=== PATIENT | female | born 1995 | race Caucasian/White ===

== ENCOUNTER 2024-05-20 18:57 | Emergency (ER) | payer OTHER, SELFPAY ==
[2024-05-20 19:01] VITALS: BP 114/82
[2024-05-20 22:26] VITALS: BP 119/86
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
== END 2024-05-20 22:54 | disposition home or self-care (01) ==
LOC: EMR 18:57
PROVIDERS: EMERGENCY PHYSICIAN Emergency Medicine
DX: S13.4XXA Sprain of ligaments of cervical spine, initial encounter (principal); V49.40XA Driver injured in collision with unspecified motor vehicles in traffic accident, initial encounter; F17.290 Nicotine dependence, other tobacco product, uncomplicated
CPT/HCPCS: 99283; 72050

== ENCOUNTER 2024-10-01 07:43 | Emergency (ER) | payer OTHER, SELFPAY ==
[2024-10-01 07:54] VITALS: BP 100/75
--- NOTE | 2024-10-01 08:42 | ED.GENMED ---
History of Present Illness
General
Chief Complaint: Abdominal Pain
Source: patient and spouse
Exam Limitations: none
Time Seen by Provider: 10/01/24 08:07
Nursing documentation reviewed up to this point in time: agreed with
History of Present Illness
History of Present Illness:
28-year-old female presenting to the emergency department today with concerns of abdominal discomfort described as stabbing starting last night rating to the right lower quadrant left lower quadrant. Associated nausea no vomiting no diarrhea
currently her menstrual cycle denies any significant changes or symptoms different from the norm.
Past History
Past History
ED Past Medical History: None
ED Past Surgical History: Tonsilectomy
Social History
Tobacco: Other (Vapes)
Alcohol: None
Drug: None
Personal: Single
Living: with roommate (boyfriend)
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
Review of Systems
Review of Systems
Allergies reviewed?: Yes
All Other Systems: ROS reviewed and negative except as documented in HPI and ROS
Phy Exam
Physical Exam
Physical Exam:
GENERAL: Alert , in no apparent distress
EYE: pupils equal and reactive
NECK: Supple, no significant adenopathy.
ENT: o/p clr, mmm.
CARDIAC: Regular rate and rhythm .
LUNGS: Clear breath sounds bilaterally, no acute respiratory distress, no wheezes/rales/rhonchi
ABDOMEN: Tenderness palpation throughout the lower abdomen maximal to the suprapubic region right lower quadrant. No specific peritoneal signs no discomfort to the upper abdomen. Voluntary guarding throughout the lower abdomen
NEUROLOGICAL: Alert and oriented, no focal neuro deficits
SKIN: Warm and dry, skin intact.
MUSCULOSKELETAL: No edema, well perfused.
PSYCH: Normal and appropriate interaction.
Course
Orders/Labs/Results
Orders:
Orders
10/01/24 08:25
CT Abd/Pel (IV only)-DH only Urgent
Comment:
Reason For Exam: lower abd pain
Ketorolac [Toradol] 15 mg IV NOW STA
Test Result ONCE
10/01/24 08:52
Complete Blood Count/With Diff Urgent
Comprehensive Metabolic Panel Urgent
HCG, Serum Qualitative Screen Urgent
Lipase Urgent
Urinalysis Reflex To Culture Urgent
Date Specimen was Collected: 10/01/24
Time Specimen was Collected: 08:50
Abnormal Lab Results
10/01/24
08:52
WBC 3.9 L 10^3/uL
(4.8-10.8)
RBC 3.79 L 10^6/uL
(4.20-5.40)
Hgb 11.7 L g/dL
(12.0-16.0)
Hct 34.2 L %
(37.0-47.0)
Absolute Lymphs (auto) 0.8 L 10^3/uL
(1.2-3.4)
10/01/24 08:52
10/01/24 08:52
Vital Signs
Initial and Last Documented VS:
Initial Vital Signs
Temp Pulse Resp BP Pulse Ox
98.4 F 67 18 100/75 100
10/01/24 07:54 10/01/24 07:54 10/01/24 07:54 10/01/24 07:54 10/01/24 07:54
Last Documented Vital Signs
Temp Pulse Resp BP Pulse Ox
98.4 F 67 18 100/75 100
10/01/24 07:54 10/01/24 07:54 10/01/24 07:54 10/01/24 07:54 10/01/24 07:54
MDM/Problems Addressed
MDM/Problems Addressed:
28-year-old female presenting to the emergency department with concerns of lower abdominal pain. Reproducible here to the suprapubic and right lower quadrant. Starting last night worsening today. Associated nausea no vomiting. Plan for CT scan
for further assessment. CT scan does not show any emergent findings. Patient claims after Toradol symptoms have fully resolved patient no distress no ongoing discomfort to palpation to the abdomen. Surgical pathology appears very unlikely at this
point. The possibility of missing an ovarian torsion was discussed with the patient however no evidence on CT scan making this unlikely also with resolution. She was advised for any recurrence of symptoms to return for further assessment. She
demonstrated understanding and agreement with the plan.
*Critical Care Note
Total Time (30-74mins, 75-104mins- exclusive of procedures): Not Applicable
ED Attending Note
-
Portions of this chart may have been created with voice recognition software.� Occasional wrong word or��sound alike� substitutions may have occurred due to the inherent limitations of voice recognition software.
Discharge Plan
Departure
Patient Disposition: Home (Routine Discharge)
Date of Disposition: 10/01/24
Time of Disposition: 10:33
Patient with high blood pressure during this ER visit?: No
Condition: Good
Covid-19: Not Applicable
Discharge Problem:
Lower abdominal pain
Instructions: Abdominal Pain
Prescriptions:
No Action
folic acid 0.4 MG tablet
0.4 mg PO DAILY
prenat.vits,julio,iqa-wrmz-iovuv [ Vitamin] 1 EACH tablet
1 tab PO DAILY
ibuprofen 600 MG tablet
600 mg PO Q4HPRN PRN (Reason: moderate pain/cramps) Qty: 0 0RF
ondansetron 4 mg tablet,disintegrating
4 mg PO Q8H PRN (Reason: nausea and vomiting) Qty: 10 0RF
Referrals:
Bethany Bernstein NP [Family Provider] -
Activity Restrictions/Additional Instructions:
You came to the emergency department today with concerns of lower abdominal pain. Here you had a reassuring assess with normal CT scan and labs. Please follow-up closely as an outpatient. Please return for any worsening or progressive symptoms
Interventions
Interventions:
*Risk Screen - Suicide Last Done: 10/01/24 07:54
*General Assessment Last Done: 10/01/24 07:54
*Neglect/Abuse Screening Last Done: 10/01/24 07:54
ED- Fall Risk Assessment Last Done: 10/01/24 11:00
*ED COVID-19 Vaccine History Last Done: 10/01/24 11:00
*Nursing Disposition Last Done: 10/01/24 11:00
GX-Hempkp-Wacsiqfqlx Assessment Last Done: 10/01/24 11:00
Discharge Date and Time
Discharge Date/Time: 10/01/24 11:01
Print Language: TELUGU
[2024-10-01 08:56] VITALS: BMI 23.9
[2024-10-01 09:07] LABS: Urine Albumin Negative (Neg - Trace); Urine Bilirubin Negative (Negative); Urine Character Clear (Clear); Urine Color Straw; Urine Glucose Negative (Negative); Urine Ketone Negative (Negative); Urine Leukocyte Negative (Negative); Urine Nitrite Negative (Negative); Urine Occult Blood Negative (Negative); Urine Specific Gravity 1.015 (<1.030); Urine Urobilinogen Negative (Neg - 1+)
[2024-10-01 09:09] LABS: % Basophils 0.8 % (0-2); % Eosinophils 2.6 % (0-6); % Immature Granulocytes 0.5 % (0-0.5); % Lymphocytes 20.6 % (20.5-51.1); % Neutrophils 67.5 % (42.2-75.2); Absolute Eosinophils 0.1 10^3/uL (0-0.7); Absolute Lymphocytes 0.8 10^3/uL (1.2-3.4); Absolute Monocytes 0.3 10^3/uL (0.1-0.6); Absolute Neutrophils 2.6 10^3/uL (1.4-6.5); Hematocrit 34.2 % (37.0-47.0); Hemoglobin 11.7 g/dL (12.0-16.0); Mean Corp Hgb Conc. 34.2 g/dL (33.0-37.0); Mean Corpuscular Hgb 30.9 pg (27.0-31.0); Mean Corpuscular Volume 90.2 fL (81.0-99.0); Mean Platelet Volume 10.1 fL (7.4-10.4); Nucleated Red Blood Cells % 0 %; Platelet Count 191 10^3/uL (130-400); Red Blood Cell Count 3.79 10^6/uL (4.20-5.40); Red Cell Dist. Width 12.7 % (11.5-14.5); White Blood Cell Count 3.9 10^3/uL (4.8-10.8)
[2024-10-01] MEDS: TORADOL 15 MG IV (09:11)
[2024-10-01 09:19] LABS: HCG, Serum Qualitative Screen Negative
[2024-10-01 09:23] LABS: ALT (SGPT) 13 U/L (0-35); AST (SGOT) 18 U/L (14-36); Albumin 4.2 g/dl (3.5-5.0); Alkaline Phosphatase 42 U/L (38-126); Blood Urea Nitrogen 8 mg/dl (7-17); Calcium 9.2 mg/dl (8.4-10.2); Carbon Dioxide 24 mmol/L (22-30); Chloride 107 mmol/L (98-107); Estimated Creatinine Clearance 122 ml/min; Glucose 94 mg/dl (70-99); Lipase 56 U/L (23-300); Sodium 139 mmol/L (135-145); Total Bilirubin 0.5 mg/dl (0.2-1.3); Total Protein 6.5 g/dl (6.3-8.2); eGFR > 60.00
[2024-10-01 09:34] LABS: Potassium 4.2 mmol/L (3.5-5.1)
== END 2024-10-01 11:01 | disposition home or self-care (01) ==
LOC: EMR 07:43
PROVIDERS: Physician Assistant; EMERGENCY PHYSICIAN Emergency Medicine; FAMILY PHYSICIAN Nurse Practitioner Family
DX: R10.30 Lower abdominal pain, unspecified (principal); R11.0 Nausea; F17.290 Nicotine dependence, other tobacco product, uncomplicated
CPT/HCPCS: 99284; 96374; 74177; 80053; 81003; 83690; 84703; 85025; Q9967

== ENCOUNTER 2025-04-27 11:09 | Emergency (ER) | payer SELFPAY ==
[2025-04-27 11:10] VITALS: BP 108/68
[2025-04-27 11:32] VITALS: BMI 23.3
[2025-04-27] MEDS: DILAUDID 1 MG IM (11:37)
--- NOTE | 2025-04-27 11:37 | ED.MUSCINJ ---
HPI-Injury
General
Chief Complaint: Musculo-Skeletal Complaint
Source: patient
Exam Limitations: none
Time Seen by Provider: 04/27/25 11:34
Nursing documentation reviewed up to this point in time: agreed with
History of Present Illness-Injury
Initial Injury comments:
29-year-old female with no significant past medical history is here for right shoulder and hip pain after being pulled by her dog and falling onto her right side within the past hour. She denies hitting her head.
Past History
Past History
ED Past Medical History: None
ED Past Surgical History: Tonsilectomy
Social History
Tobacco: Other (Vapes)
Alcohol: None
Drug: None and Marijuana
Personal: Single
Living: with roommate (boyfriend)
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
Review of Systems
Review of Systems
Allergies reviewed?: Yes
All Other Systems: ROS reviewed and negative except as documented in HPI and ROS
Respiratory: Denies trouble breathing
Cardiac: Denies chest pain
ABD/GI: Denies abdominal pain
Musculoskeletal: Reports other (Pain right shoulder, pain right hip)
Skin: Reports other (scrape right lower back, left knee)
Neurological: Reports no symptoms
Phy Exam
Physical Exam
Physical Exam:
GENERAL: No acute distress. A&Ox3.
CONSTITUTIONAL: Afebrile.
EYES: clear, conjunctivae normal
ENMT: moist mucus membranes, Pharynx nl
RESPIRATORY: Regular respirations, nonlabored, lungs clear.
CARDIOVASCULAR: Regular rate and rhythm, no murmurs, no rubs.
GI: Soft, nontender, normal BS
MUSCULOSKELETAL: No spinal bony tenderness. Limited range of motion right arm due to tender over distal right clavicle, limited range of motion right leg due to pain right lateral hip. Distal neurovascular intact both areas. Well perfused.
SKIN: Warm, dry, pink. Superficial scrapes left knee, right lower back with a 4 to 4 cm area of redness, tenderness, clean abrasion.
PSYCH: Normal mood and affect. Well kept, interactive and appropriate
NEUROLOGIC: Awake, alert and oriented. No focal neurological deficits
Injury Course
Orders/Labs/Results
Orders:
Orders
04/27/25 11:29
CR Hip - RT w/wo Pel 2-3 Vw* Urgent
Comment:
Reason For Exam: injury/pain/decreased ROM
Include a pelvis x-ray?: Yes
04/27/25 11:30
CR Shoulder, Trauma - Right Urgent
Comment:
Reason For Exam: injury/pain
04/27/25 11:34
HYDROmorphone [Dilaudid] 1 mg IM NOW STA
04/27/25 12:59
Sling Right-Treatment ONCE
MDM/Problems Addressed
Differential Diagnosis Includes:
fx vs ST injury shoulder, right hip
MDM/Problems Addressed:
29-year-old female with no significant past medical history is here for right shoulder and hip pain after being pulled by her dog and falling onto her right side within the past hour. She denies hitting her head.
X-ray right shoulder initially read by this examiner: Nondisplaced fracture of the distal clavicle.
X-ray right hip initially read by this examiner: No fracture noted.
1:00 PM:
Discussed x-ray results with patient
Adequate relief of pain after pain medication
Patient out of bed and ambulating well
Sling applied, after application distal neurovascular check is normal
Patient referred to orthopedics for follow-up
*Pulse Oximetry
SaO2: 98
Oxygen Mode of Delivery: Room air
Patient hypoxic: not evaluated
*Critical Care Note
Total Time (30-74mins, 75-104mins- exclusive of procedures): Not Applicable
ED Attending Note
-
Portions of this chart may have been created with voice recognition software.� Occasional wrong word or��sound alike� substitutions may have occurred due to the inherent limitations of voice recognition software.
Discharge Plan
Departure
Patient Disposition: Home (Routine Discharge)
Date of Disposition: 04/27/25
Time of Disposition: 12:59
Patient with high blood pressure during this ER visit?: No
Condition: Good
Discharge Problem:
Closed fracture of distal clavicle, Contusion of right hip, Abrasion of right side of back
Instructions: Clavicle fracture, Contusion (DC), Taking care of cuts, scrapes, and puncture wounds, Using Cold for Pain
Prescriptions:
New
tramadol 50 mg tablet
50 mg PO Q8H PRN (Reason: Pain) Qty: 10 0RF
Referrals:
Timmy Nguyen MD [Active, Orthopedics] - Call in 1-3 days for appt
UNKNOWN - PT DOES,NOT KNOW [Family Provider]
Stand Alone Forms: Return to Work
Activity Restrictions/Additional Instructions:
As we discussed, cool compress 20 minutes off and on to any sore areas for the next 2 days.
Ibuprofen 600 mg, with food, every 6 hours for mild to moderate pain and use the tramadol only if needed for worse pain.
I sent a prescription to your pharmacy for the tramadol.
Wear the sling when up and around for the next week then as needed.
Call the orthopedic doctors office Tuesday morning and make next available appointment.
Interventions
Interventions:
*Risk Screen - Suicide Last Done: 04/27/25 11:10
*General Assessment Last Done: 04/27/25 11:24
*Neglect/Abuse Screening Last Done: 04/27/25 11:10
*ED- Fall Risk Assessment Last Done: 04/27/25 11:24
*ED COVID-19 Vaccine History Last Done: 04/27/25 11:24
*Nursing Disposition Last Done: 04/27/25 13:57
ED-Musculoskeletal Assessment Last Done: 04/27/25 11:24
Discharge Date and Time
Discharge Date/Time: 04/27/25 13:50
Print Language: LITHUANIAN
[2025-04-27 13:57] VITALS: BP 102/70
== END 2025-04-27 13:50 | disposition home or self-care (01) ==
LOC: EMR 11:09
PROVIDERS: EMERGENCY PHYSICIAN Student in an Organized Health Care Education/Training Program
DX: S42.031A Displaced fracture of lateral end of right clavicle, initial encounter for closed fracture (principal); S70.01XA Contusion of right hip, initial encounter; S20.411A Abrasion of right back wall of thorax, initial encounter; W18.39XA Other fall on same level, initial encounter; F17.290 Nicotine dependence, other tobacco product, uncomplicated
CPT/HCPCS: 96372; 99284; 73030; 73502